=== PATIENT | male | born 1990 | race African-American/Black ===

== ENCOUNTER 2018-02-24 22:53 | Emergency (ER) | payer MEDICAID ==
[~2018-02-24] VITALS: Ht 185.4 cm; Wt 92.0 kg
[~2018-02-24 22:53] MED LIST: ALPR2TAB2; HYDR-519; QUET50TA
[2018-02-25] MEDS ORDERED: TETANUS, DIPHTHERIA, PERTUSSIS VAC/PF 0.5ML (>7YR OLD) IM ONE
[2018-02-25] MEDS ORDERED: HYDROCODONE/ACETAMINOPHEN 5/325MG TABLET PO ONE
[2018-02-25 00:31] VITALS: BP 124/78
== END 2018-02-25 00:31 | disposition home or self-care (01) ==
LOC: ER 22:53
DX: S21.242A Puncture wound with foreign body of left back wall of thorax without penetration into thoracic cavity, initial encounter (principal); Y35.893A Legal intervention involving other specified means, suspect injured, initial encounter; Y93.89 Activity, other specified; Y92.89 Other specified places as the place of occurrence of the external cause; Z23 Encounter for immunization
CPT/HCPCS: 90471; 90715; 99283